=== PATIENT | male | born 1975 | race Caucasian/White ===

== ENCOUNTER 2018-06-14 23:45 | Emergency (ER) | payer SELFPAY ==
[~2018-06-14] VITALS: Ht 170.2 cm; Wt 95.8 kg
[2018-06-14 23:48] VITALS: Ht 170.2 cm; Wt 95.8 kg
[2018-06-15 00:28] VITALS: BP 198/101
== END 2018-06-15 00:28 | disposition home or self-care (01) ==
LOC: ED 23:45
DX: Z03.89 Encounter for observation for other suspected diseases and conditions ruled out (principal)

== ENCOUNTER 2018-09-12 14:32 | Emergency (ER) | payer OTHER ==
[~2018-09-12] VITALS: Ht 177.8 cm; Wt 93.9 kg
[2018-09-12 14:40] VITALS: BP 162/91; Ht 177.8 cm; Wt 93.9 kg
== END 2018-09-12 15:20 | disposition home or self-care (01) ==
LOC: ED 14:32
DX: M54.5 Low back pain (principal); X50.9XXA Other and unspecified overexertion or strenuous movements or postures, initial encounter; Y93.89 Activity, other specified; Y92.89 Other specified places as the place of occurrence of the external cause; Y99.8 Other external cause status
CPT/HCPCS: J1885